=== PATIENT | male | born 1945 | race Caucasian/White ===

== ENCOUNTER → 2017-07-19 | Outpatient (CLI) | payer MEDICARE, OTHER ==
--- NOTE | 2017-07-30 02:41 | ONC ---
[place] [address] RADIATION ONCOLOGY NOTE Name: MARICRUZ WALLER Room: [facility]#: [id number] Admission: 07/19/17 Attend Phys: Rj Bonner MD Discharge: Date of : 47 Report #: [id number] THIS REPORT FOR: //name// CC: Rj Silva MD DATE OF SERVICE: 07/19/2017 [facility] REFERRING PHYSICIANS: Dr. Cole, Dr. Triana, his vascular surgeon; Dr. Tam, [facility] primary care [facility]; and Dr. Sadi Silva. 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 Radiation treatments were completed on 12/17/2015. PROCEDURE: Nasopharyngolaryngoscopy. FINDINGS: On nasopharyngolaryngoscopy, after the patient was given a small amount of 2% viscous orally and 2% viscous lidocaine to the left nostril, there were no visible lesions in the nasopharynx. There were no visible lesions in the posterior oropharynx. The true vocal cords were normally mobile bilaterally without any visible lesions. There was no evidence of head or neck cancer. Thank you for allowing me to participate in the care of this patient. <ELECTRONICALLY SIGNED> By: Rj Bonner MD 07/30/17 0241 1237 1616MD abigail Marcos
--- NOTE | 2017-07-30 02:48 | ONC ---
[address] [address] RADIATION ONCOLOGY NOTE Name: MARICRUZ WALLER Room: [facility]#: [id number] Admission: 07/19/17 Attend Phys: Rj Bonner MD Discharge: Date of : 47 Report #: [id number] THIS REPORT FOR: //name// CC: Rj Silva MD DATE OF SERVICE: 07/19/2017 REFERRING PHYSICIANS: Dr. Cole from psychiatry, Dr. Triana from vascular surgery, Dr. Tam, and Dr. Sadi Silva [facility] phone is [phone]. 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 The radiation treatments were completed on 12/17/2015. INTERVAL NOTE: Overall, the patient has been switching to eating salads and strawberries and has had some weight loss. He thinks he has a little bit of a decreased appetite. He denied having any painful swallowing. He denied having any dysphagia. He said he saw his vascular surgeon last month and that they said his aneurysm was stable. He said that he continues to follow up with his vascular surgeon. MEDICATIONS: Alprazolam, sertraline, Prazosin, ranitidine, ibuprofen, and aspirin. SOCIAL HISTORY: Cigarettes: The patient quit smoking in 2013, and he smoked about 1 pack per day for about 40 years. REVIEW OF SYSTEMS: RESPIRATORY: Breathing was stable. He was not short of breath. MUSCULOSKELETAL: He has good range of motion of his upper extremities. PHYSICAL EXAMINATION: VITAL SIGNS: The patient weighed 120.8 pounds on 07/19/2017, he was 133.2 pounds on 01/18/2017, he was 126 pounds on 09/07/2016, and he was 121.4 pounds on 01/13/2016. On 07/19/2017, pulse was 72, respirations 16, and oxygen saturation 97%. LYMPH NODES: He had no palpable cervical [place] [address] RADIATION ONCOLOGY NOTE Name: MARICRUZ WALLER Room: [facility]#: [id number] Admission: 07/19/17 Attend Phys: Rj Bonner MD Discharge: Date of : 47 Report #: [id number] HEAD, EYES, EARS, NOSE, AND THROAT: Mouth had no suspicious visible lesions or suspicious palpable lesions. On nasopharyngolaryngoscopy after the patient was given a small amount of 2% viscous lidocaine orally and 2% viscous lidocaine to the left nostril, there were no visible lesions in the nasopharynx or posterior oropharynx. The true vocal cords were normally mobile bilaterally without any visible lesions. HEART: Had a regular rate and rhythm without murmur. LUNGS: were clear to auscultation. LABORATORY DATA: From 07/07/2017, TSH was within normal limits at 0.810. ASSESSMENT AND PLAN: 1. History of true vocal cord cancer. There is no evidence of true vocal cord cancer at this time. The patient was asked to schedule a follow up appointment with me in about 6 weeks. 2. History of smoking-the patient had a screening chest CT without contrast ordered. The patient was asked to follow up with me afterwards in about 4-6 weeks. 3. History of aortic aneurysm- The patient follows up with his vascular surgeon, Dr. Triana, with regards to that issue. 4. reflux symptoms- the patient takes ranitidine as needed. Thank you for allowing me to participate in the care of this patient. <ELECTRONICALLY SIGNED> By: Rj Bonner MD 07/30/17 0248 1241 1633Ddiego Bonner MD /nt
== END | disposition home or self-care (01) ==
LOC: M.RTH 07-17 13:30
DX: Z85.21 Personal history of malignant neoplasm of larynx (principal); Z98.890 Other specified postprocedural states; Z87.891 Personal history of nicotine dependence; Z79.899 Other long term (current) drug therapy; Z79.82 Long term (current) use of aspirin

== ENCOUNTER → 2017-09-08 | Outpatient (CLI) | payer MEDICARE, OTHER ==
--- NOTE | 2017-09-17 13:03 | ONC ---
[address] [address] RADIATION ONCOLOGY NOTE Name: MARICRUZ WALLER Room: [facility]#: [id number] Admission: 09/08/17 Attend Phys: Rj Bonner MD Discharge: Date of : 47 Report #: [id number] THIS REPORT FOR: //name// CC: Rj Triana DATE OF SERVICE: 09/08/2017 RADIATION ONCOLOGY PROCEDURE NOTE REFERRING PHYSICIANS: Include Dr. Cole, Dr. Triana from Vascular Surgery and Dr. Jose and Sadi Silva MD. [facility] phone is [phone]. 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 Radiation treatments were completed on 12/17/2015. PROCEDURE: Nasopharyngolaryngoscopy. FINDINGS: On nasopharyngolaryngoscopy, after the patient was given a small amount of 2% viscous lidocaine orally and 2% viscous lidocaine to the left nostril via a cotton swab , there were no visible lesions in the nasopharynx. There were no visible lesions in the posterior oropharynx. The true vocal cords were normally mobile bilaterally without any visible lesions. There was no evidence of head and neck cancer. Thank you for allowing me to participate in the care of this patient. <ELECTRONICALLY SIGNED> By: Rj Bonner MD 09/17/17 1303 1752 2158MD abigail Marcos
--- NOTE | 2017-09-17 13:16 | ONC ---
[address] [address] RADIATION ONCOLOGY NOTE Name: MARICRUZ WALLER Room: [facility]#: [id number] Admission: 09/08/17 Attend Phys: Rj Bonner MD Discharge: Date of : 47 Report #: [id number] THIS REPORT FOR: //name// CC: Rj Silva DATE OF SERVICE: 09/08/2017 REFERRING PHYSICIANS: Include Dr. Cole; Dr. Triana; Dr. Tam, [place] primary care physician and Dr. Silva [facility] phone is [phone]. 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 The radiation treatments were completed on 12/17/2015. INTERVAL NOTE: The patient is eating soft foods such as soups. He recently had taken Augmentin for pneumonia. He did lose some weight with that episode. He says he sees his vascular surgeon about May of every year and that he saw him in 05/2017. MEDICATIONS: He has been on Augmentin for pneumonia and he is also taking alprazolam as needed, sertraline, prazosin, ranitidine, ibuprofen and aspirin. SOCIAL HISTORY: Cigarettes: The patient quit smoking in 2013. He smoked about one pack per day for about 40 years. REVIEW OF SYSTEMS: RESPIRATORY: Breathing was stable. He was not short of breath. MUSCULOSKELETAL: He had good range of motion of his upper extremities. PHYSICAL EXAMINATION: VITAL SIGNS: Weight was 117.2 pounds on 09/08/2017, 120.8 pounds on 07/19/2017. On 09/08/2017, blood pressure was 110/70, pulse 78, respirations 18 and oxygen saturation 97%. LYMPH NODES: The patient had no palpable cervical or supraclavicular lymphadenopathy. HEAD, EYES, EARS, NOSE AND THROAT: Mouth had no suspicious visible lesions or suspicious palpable lesions. On nasopharyngolaryngoscopy after the patient was given a small amount of 2% viscous lidocaine orally and 2% viscous lidocaine to the left nostril, there were no visible lesions in the nasopharynx [place] [address] RADIATION ONCOLOGY NOTE Name: CHRISTINMARICRUZ Antonia Room: [facility]#: [id number] Admission: 09/08/17 Attend Phys: Rj Bonner MD Discharge: Date of : 47 Report #: [id number] oropharynx. The true vocal cords were normally mobile bilaterally without any visible lesions. HEART: Had a regular rate and rhythm without murmur. LUNGS: were clear to auscultation. LABORATORY DATA: From 07/07/2017, TSH was 0.81 RADIOLOGIC DATA: screening CT of the lung on 09/01/2017 revealed development of scattered nodular opacities and areas of mucus plugging within both lungs, which could be pneumonia. There was a 0.87 cm left upper lobe nodule which was nonspecific, but could be a superimposed infection. Follow up low dose chest CT in 3 months was recommended and had mild emphysema and at least mild coronary artery calcifications. He is taking antibiotics for pneumonia. ASSESSMENT AND PLAN: 1. History of true vocal cord cancer- There is no evidence of true vocal cord cancer at this time. The patient had lab work ordered in about 3 months and the patient was asked to schedule a follow up appointment to see me afterwards. The lab work included a TSH, complete blood count and complete metabolic panel. 2. Resolving pneumonia-The patient had a low dose chest CT and a video swallow study ordered in 11/2017 as well as a complete blood count, complete metabolic panel in 10/2017 or 11/2017. The patient was asked to schedule a follow up appointment to see me afterwards. 3. History of aortic aneurysm- The patient follows up with his vascular surgeon, Dr. Triana with regards to that issue. Thank you for allowing me to participate in the care of this patient. <ELECTRONICALLY SIGNED> By: Rj Bonner MD 09/17/17 1316 1759 2206Rj Bonner MD /nt
== END ==
LOC: M.RTH 08-11 11:00
DX: Z08 Encounter for follow-up examination after completed treatment for malignant neoplasm (principal); F17.210 Nicotine dependence, cigarettes, uncomplicated; Z85.21 Personal history of malignant neoplasm of larynx

== ENCOUNTER → 2017-09-21 | Outpatient (CLI) | payer MEDICARE, OTHER | LOC: M.RAD 09:19 | DX: R13.12 Dysphagia, oropharyngeal phase (principal); J44.9 Chronic obstructive pulmonary disease, unspecified; Z85.21 Personal history of malignant neoplasm of larynx; Z87.891 Personal history of nicotine dependence ==

== ENCOUNTER → 2017-12-13 | Outpatient (CLI) | payer MEDICARE, OTHER ==
--- NOTE | 2017-12-25 22:15 | ONC ---
[address] [address] RADIATION ONCOLOGY NOTE Name: MARICRUZ WALLER Room: [facility]#: [id number] Admission: 12/13/17 Attend Phys: Rj Bonner MD Discharge: Date of : 47 Report #: [id number] THIS REPORT FOR: //name// CC: Rj Triana (Vascular surgery) DATE OF PROCEDURE: 12/13/2017 REFERRING PHYSICIANS: Dr. Cole, Dr. Jose, Dr. Sadi Silva, Dr. Triana from Vascular Surgery. [facility] phone is [phone]. 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 Radiation treatments were completed on 12/17/2015. PROCEDURE: Nasopharyngolaryngoscopy. FINDINGS: On nasopharyngolaryngoscopy, after the patient was given a small amount of 2% viscous lidocaine orally and 2% viscous lidocaine to the left nostril via a cotton swab, there were no visible lesions in the nasopharynx. There were no visible lesions in the posterior oropharynx. The true vocal cords were normally mobile bilaterally without any visible lesions. There is no evidence of head and neck cancer. Thank you for allowing me to participate in the care of this patient. <ELECTRONICALLY SIGNED> By: Rj Bonner MD 12/25/17 2215 1153 2106MD abigail Marcos
--- NOTE | 2017-12-25 22:22 | ONC ---
[address] [address] RADIATION ONCOLOGY NOTE Name: MARICRUZ WALLER Room: [facility]#: [id number] Admission: 12/13/17 Attend Phys: Rj Bonner MD Discharge: Date of : 47 Report #: [id number] THIS REPORT FOR: //name// CC: Rj Silva MD DATE OF SERVICE: 12/13/2017 REFERRING PHYSICIANS: Include Dr. Cole, Dr. Jose, Dr. Triana and Dr. Sadi Silva. [facility] phone is [phone]. 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 The radiation treatments were completed on 12/17/2015. INTERVAL NOTE: The patient is eating a regular diet. He says he sees his vascular surgeon about May of every year. His voice sounds like it has good quality. MEDICATIONS: Alprazolam, sertraline, prazosin, ranitidine, ibuprofen, aspirin and Marinol. SOCIAL HISTORY: Cigarettes: The patient quit smoking in 2013. He smoked about 1 pack per day for about 40 years. REVIEW OF SYSTEMS: RESPIRATORY: Breathing was stable. He was not short of breath. MUSCULOSKELETAL: Good range of motion of his upper extremities. PHYSICAL EXAMINATION: VITAL SIGNS: Weight was 120.2 pounds on 12/13/2017, 117.2 pounds on 09/08/2017. On 12/13/2017, blood pressure was 106/80, pulse 75, respirations 20, oxygen saturation 96%. LYMPH NODES: The patient had no palpable cervical or supraclavicular lymphadenopathy. HEAD, EYES, EARS, NOSE AND THROAT: Mouth had no suspicious visible lesions or suspicious palpable lesions. On nasopharyngolaryngoscopy after the patient was given a small amount of 2% viscous lidocaine orally and 2% viscous lidocaine to the left nostril, there were no visible lesions in the nasopharynx or posterior oropharynx. The true vocal cords were normally [place] [address] RADIATION ONCOLOGY NOTE Name: MARICRUZ WALLER Room: [facility]#: [id number] Admission: 12/13/17 Attend Phys: Rj Bonner MD Discharge: Date of : 47 Report #: [id number] visible lesions. HEART: Had a regular rate and rhythm without murmur. LUNGS: were clear to auscultation. LABORATORY DATA: From 12/08/2017, TSH was within normal limits at 1.14. Sodium 137, potassium 4.5, BUN 18, creatinine 1.08. AST 18, ALT 14. White blood count 4.7, hemoglobin 15, platelets 208,000. RADIOLOGIC DATA: Low dose chest CT- there was no significant change in the dominant left upper lobe nodular opacity, which was likely a scar. Continued annual low dose CT of the lung was recommended. 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 There were mild coronary artery calcifications. ASSESSMENT AND PLAN: 1. History of true vocal cord cancer- There is no evidence of true vocal cord cancer at this time. The patient had lab work for TSH, basic metabolic panel, complete blood count ordered in May 2018. He was asked to schedule a followup appointment to see me afterwards. 2. Resolving pneumonia/atypical pneumonia- The patient will be referred to infectious disease to assess the CT scan findings to see if they are in agreement with the radiology report about this possibly being atypical pneumonia and then treating the patient if appropriate. Again, the patient was asked to schedule a followup appointment to see me in 6 months. 3. History of aortic aneurysm- The patient follows up with his vascular surgeon, Dr. Triana with regards to that issue. Thank you for allowing me to participate in the care of this patient. <ELECTRONICALLY SIGNED> By: Rj Bonner MD 12/25/17 2222 1159 2116Rj Bonner MD /nt
== END ==
LOC: M.RTH 12-08 11:30
DX: J18.9 Pneumonia, unspecified organism (principal); Z86.79 Personal history of other diseases of the circulatory system; Z85.21 Personal history of malignant neoplasm of larynx

== ENCOUNTER → 2018-06-15 | Outpatient (CLI) | payer MEDICARE, OTHER ==
--- NOTE | ~2018-06-15 | ONC ---
[address] [address] RADIATION ONCOLOGY NOTE Name: CHRISTINMARICRUZ Antonia Room: [facility]#: [id number] Admission: 06/15/18 Attend Phys: Rj Bonner MD Discharge: Date of : 47 Report #: [id number] THIS REPORT FOR: //name// CC: Linda Bonner DATE OF SERVICE: 06/15/2018 REFERRING PHYSICIANS: Dr. Cole, Dr. Jose, Dr. Triana and Dr. Sadi Silva. [facility] phone is [phone]. 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 Radiation treatments were completed on 12/17/2015. INTERVAL NOTE: The patient is eating a regular diet. He sees his vascular surgeon about May of every year to check on his aortic aneurysm and his voice quality is good. MEDICATIONS: Alprazolam, sertraline, prazosin, ranitidine, ibuprofen as needed, aspirin and Marinol. SOCIAL HISTORY: The patient quit smoking in 2013, he smoked about 1 pack per day for about 40 years. REVIEW OF SYSTEMS: RESPIRATORY: Breathing was stable. He was not short of breath. MUSCULOSKELETAL: He has good range of motion of his upper extremities. PHYSICAL EXAMINATION: VITAL SIGNS: Weight 124.4 pounds on 06/15/2018, 120.2 pounds on 12/13/2017. On 06/15/2018, blood pressure 126/71, pulse 90, oxygen saturation 97%, respirations 20. LYMPH NODES: No palpable cervical or supraclavicular lymphadenopathy. HEAD, EYES, EARS, NOSE AND THROAT: Mouth had no suspicious visible lesions, suspicious palpable lesions. On nasopharyngolaryngoscopy, after the patient was given a small amount of 2% viscous lidocaine orally and 2% viscous lidocaine to left nostril, there were no visible lesions in the nasopharynx or posterior oropharynx. True vocal cords were normally mobile bilaterally without any visible lesions. HEART: Had a regular rate and rhythm without murmur. LUNGS: Clear to auscultation. LABORATORY DATA: From 05/21/2018, hemoglobin 14, platelets were 145,000, white blood cells 5.2. Sodium 137, potassium 4.5, BUN 18, creatinine 1.01 [place] [address] RADIATION ONCOLOGY NOTE Name: MARICRUZ WALLER Room: [facility]#: [id number] Admission: 06/15/18 Attend Phys: Rj Bonner MD Discharge: Date of : 47 Report #: [id number] 1.160. RADIOLOGIC DATA: He had a low dose chest CT without contrast on 12/08/2017 which revealed no significant changes in the left upper lobe nodular density, which is likely scarring and he had improvement in his some opacities that were seen previously. ASSESSMENT AND PLAN: 1. History of true vocal cord cancer. There is no evidence of true vocal cord cancer at this time. A requisition was written for complete blood count, basic metabolic panel and TSH in 12/2018. Follow up with me afterwards. 2. Screening for history of smoking. A screening chest CT was ordered without contrast in about 11/2018 and follow up with me afterwards. 3. History of aortic aneurysm. The patient will follow up with his vascular surgeon, Dr. Triana to manage that issue. 4. Appetite. The patient was given a refill for dronabinol and he is gaining weight while taking dronabinol also. Thank you for allowing me to participate in the care of this patient. By: 1653 [id number] Bonner MD /nt
--- NOTE | ~2018-06-15 | ONC ---
[place] [address] RADIATION ONCOLOGY NOTE Name: MARICRUZ WALLER Room: [facility]#: [id number] Admission: 06/15/18 Attend Phys: Rj Bonner MD Discharge: Date of : 47 Report #: [id number] THIS REPORT FOR: //name// CC: Linda Bonner DATE OF SERVICE: 06/15/2018 REFERRING PHYSICIANS: Dr. Cole, Dr. Triana, Dr. Jose, from Vascular Surgery. [facility] phone is [phone]. 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 Radiation treatments were completed on 12/17/2015. PROCEDURE: Nasopharyngolaryngoscopy. FINDINGS: On nasopharyngolaryngoscopy, after the patient was given a small amount of 2% viscous lidocaine orally and 2% viscous lidocaine to the left nostril via cotton swab, there were no visible lesions in the nasopharynx and no visible lesions in the posterior oropharynx. True vocal cords were normally mobile bilaterally without any visible lesions. There was no evidence of head and neck cancer. Thank you for allowing me to participate in the care of this patient. By: 1646 [id number] Bonner MD /nt
== END ==
LOC: M.RTH 11:30
DX: Z09 Encounter for follow-up examination after completed treatment for conditions other than malignant neoplasm (principal); Z92.3 Personal history of irradiation; Z79.899 Other long term (current) drug therapy; Z87.891 Personal history of nicotine dependence; Z86.018 Personal history of other benign neoplasm

== ENCOUNTER → 2019-01-11 | Outpatient (CLI) | payer MEDICARE, OTHER ==
--- NOTE | ~2019-01-11 | ONC ---
[address] [address] RADIATION ONCOLOGY NOTE Name: MARICRUZ WALLER Room: [facility]#: [id number] Admission: 01/11/19 Attend Phys: Rj Bonner MD Discharge: Date of : 47 Report #: [id number] THIS REPORT FOR: //name// CC: Linda Tam DO Rj Cole Kevin Jose MD Nabil DATE OF SERVICE: 01/11/2019 REFERRING PHYSICIANS: Dr. Tam at the [place] primary care physician, Dr. Cole from Psychiatry, Dr. Ferrer from Orthopedics, Dr. Jose public policy professor, Dr. oPlk Vascular Surgery. [facility] phone is [phone]. 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 Radiation treatments were completed on 12/17/2015. INTERVAL NOTE: The patient is eating a regular diet. He sees his vascular surgeon about May of every year to monitor his aortic aneurysm. His voice quality is good. MEDICATIONS: Include alprazolam, sertraline, prazosin, simvastatin, ranitidine as well as Megace and aspirin. SOCIAL HISTORY: The patient quit smoking in 2013, he smoked about 1 pack per day for about 40 years. REVIEW OF SYSTEMS: RESPIRATORY: Breathing was stable. He was not short of breath. MUSCULOSKELETAL: He has good range of motion of his upper extremities. PHYSICAL EXAMINATION: VITAL SIGNS: The patient weighed 121 pounds on 01/11/2019, 124.4 pounds on 06/15/2018 and on 01/11/2019, blood pressure 135/71, pulse 100, respirations 20, oxygen saturation 96%. LYMPH NODES: He had no palpable cervical or supraclavicular lymphadenopathy. HEAD, EYES, EARS, NOSE AND THROAT: Mouth had no suspicious visible lesions or suspicious palpable lesions. On nasopharyngolaryngoscopy, after the patient was given a small amount of 2% viscous lidocaine orally and 2% viscous lidocaine to left nostril, there were no visible lesions in the [place] [address] RADIATION ONCOLOGY NOTE Name: CHRISTINMARICRUZ Antonia Room: [facility]#: [id number] Admission: 01/11/19 Attend Phys: Rj Bonner MD Discharge: Date of : 47 Report #: [id number] oropharynx. True vocal cords were normally mobile bilaterally without any visible lesions. HEART: Had a regular rate and rhythm without murmur. LUNGS: Clear to auscultation. LABORATORY DATA: The patient had labs drawn today. Back on 05/21/2018, TSH was 1.16 and his sodium was 137, potassium 4.5, BUN 18, creatinine 1.01. He is still in the process of getting his screening chest CT done. He is trying to do that at [facility] in [place] and he went and had lab work done today at the [facility] and on 01/11/2019, his hemoglobin was 13.4. His platelet count was 248,000, white blood cell count 6.2. ASSESSMENT AND PLAN: 1. History of true vocal cord cancer. There is no evidence of true vocal cord cancer at this time. Requisition was written for a TSH level, complete blood count, complete metabolic panel in 08/2019, he was asked to schedule a followup appointment to see me afterwards. Screening for history of smoking. The patient had a CT of the lung on 12/08/2017, which did not reveal any suspicious findings. He is at this point trying to get a screening chest CT for this year at [facility]. Again, he was asked to follow up with me in 08/2019. 2. History of aortic aneurysm. The patient follows up with his vascular surgeon, Dr. Triana to manage that issue. Thank you for allowing me to participate in the care of this patient. By: 1400 [id number] Bonner MD /ron
--- NOTE | ~2019-01-11 | ONC ---
[address] [address] RADIATION ONCOLOGY NOTE Name: MARICRUZ WALLER Room: [facility]#: [id number] Admission: 01/11/19 Attend Phys: Rj Bonner MD Discharge: Date of : 47 Report #: [id number] THIS REPORT FOR: //name// CC: Linda Bonner DATE OF SERVICE: 01/11/2019 REFERRING PHYSICIANS: Dr. Tam primary care physician at the [place], Dr. Cole, Dr. Ferrer Orthopedics, Dr. Jose electrician aircraft, Dr. Polk from Vascular Surgery. [facility] phone is [phone]. 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 Radiation treatments were completed on 12/17/2015. PROCEDURE: Nasopharyngolaryngoscopy. FINDINGS: On nasopharyngolaryngoscopy, after the patient was given a small amount of 2% viscous lidocaine orally and 2% viscous lidocaine to left nostril via cotton swab, there were no visible lesions in the nasopharynx, no visible lesions in the posterior oropharynx. The true vocal cords are normally mobile bilaterally without any visible lesions. There is no evidence of head and neck cancer. Thank you for allowing me to participate in the care of this patient. By: 1354 1414Ddiego Bonner MD /ron
== END ==
LOC: M.RTH 04:58
DX: Z08 Encounter for follow-up examination after completed treatment for malignant neoplasm (principal); Z85.21 Personal history of malignant neoplasm of larynx; Z85.89 Personal history of malignant neoplasm of other organs and systems

== ENCOUNTER → 2019-09-13 | Outpatient (CLI) | payer MEDICARE, OTHER ==
--- NOTE | 2019-09-15 14:56 | ONC ---
[place] [address] RADIATION ONCOLOGY NOTE Name: MARICRUZ WALLER Room: [facility]#: [id number] Admission: 09/13/19 Attend Phys: Rj Bonner MD Discharge: Date of : 47 Report #: [id number] THIS REPORT FOR: //name// CC: Dr. Linda Bonner MD DATE OF SERVICE: 09/13/2019 RADIATION ONCOLOGY FOLLOWUP NOTE REFERRING PHYSICIANS: Include Dr. Cole, Dr. Tam, Dr. Ferrer, Dr. Polk from Vascular Surgery, Dr. Jose. DATE OF PROCEDURE: 09/13/2019 [facility] phone is [phone]. 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 Radiation treatments were completed on 12/17/2015. PROCEDURE: Nasopharyngolaryngoscopy. FINDINGS: On nasopharyngolaryngoscopy, after the patient was given a small amount of 2% viscous lidocaine orally and 2% viscous lidocaine to the left nostril via a cotton swab, there were no visible lesions in the nasopharynx. There were no visible lesions in the posterior oropharynx. The true vocal cords were normally mobile bilaterally without any visible lesions. There was no evidence of head and neck cancer. Thank you for allowing me to participate in the care of this patient. <ELECTRONICALLY SIGNED> By: Rj Bonner MD 09/15/19 1456 [id number] [id number] Bonner MD /nt
--- NOTE | 2019-09-15 15:01 | ONC ---
[address] [address] RADIATION ONCOLOGY NOTE Name: MARICRUZ WALLER Room: [facility]#: [id number] Admission: 09/13/19 Attend Phys: Rj Bonner MD Discharge: Date of : 47 Report #: [id number] THIS REPORT FOR: //name// CC: Dr. Linda Bonner DATE OF SERVICE: 09/13/2019 RADIATION ONCOLOGY FOLLOWUP NOTE REFERRING PHYSICIANS: Include Dr. Cole, Dr. Tam, Dr. Ferrer, Dr. Polk, Dr. Jose. [facility] phone is [phone]. 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 Radiation treatments were completed on 12/17/2015. INTERVAL NOTE: The patient is eating a regular diet. He sees his vascular surgeon around May of each year to monitor his aortic aneurysm. His voice quality is good. MEDICATIONS: Include ranitidine, sertraline, simvastatin, alprazolam, Megace, Marinol, multivitamin, hydrocodone, ibuprofen as needed for a fractured wrist. SOCIAL HISTORY: The patient quit smoking in 2013. He smoked about 1 pack per day for about 40 years. REVIEW OF SYSTEMS: RESPIRATORY: Breathing was stable. He was not short of breath. MUSCULOSKELETAL: He had good range of motion of his upper extremities. PHYSICAL EXAMINATION: VITAL SIGNS: The patient weighed 121.8 pounds on 09/13/2019 and 121 pounds on 01/12/2020. On 09/13/2019, blood pressure was 140/88, pulse 74, temperature 98.5 degrees Fahrenheit, oxygen saturation 96%, respirations 18. LYMPH NODES: The patient had no palpable cervical or supraclavicular lymphadenopathy. HEAD, EYES, EARS, NOSE AND THROAT: Mouth had no suspicious visible lesions or suspicious palpable lesions. On nasopharyngolaryngoscopy, after the patient was given a small amount of 2% viscous lidocaine orally and 2% viscous lidocaine to the left nostril, there were no visible lesions in the nasoph[place] [address] RADIATION ONCOLOGY NOTE Name: MARICRUZ WALLER Room: [facility]#: [id number] Admission: 09/13/19 Attend Phys: Rj Bonner MD Discharge: Date of : 47 Report #: [id number] oropharynx. The true vocal cords were normally mobile bilaterally without any visible lesions. HEART: Had a regular rate and rhythm without murmur. LUNGS: were clear to auscultation. LABORATORY DATA: From 08/27/2019, TSH 1.32, sodium 142, potassium 4.3, BUN 24, creatinine 1.16 and ALT 14. White blood cell count was 5.5, hemoglobin was 14.3, platelets were 240,000. RADIOLOGIC DATA: The patient had a low dose screening chest CT on 01/21/2019, which showed chronic changes in both lung vasquez. It did not reveal any acute cardiopulmonary process. ASSESSMENT AND PLAN: 1. History of true vocal cord cancer- There is no evidence of true vocal cord cancer at this time. A requisition was written for a complete blood count, basic metabolic panel and a TSH in 04/2020 and the patient was asked to schedule a followup appointment to see me afterwards. 2. Screening for history of smoking- A screening chest CT will be ordered around 12/2019 or 01/2020 and the patient was asked to schedule a followup appointment to see me afterwards. 3. History of aortic aneurysm- The patient follows up with his vascular surgeon to monitor his aneurysm. Thank you for allowing me to participate in the care of this patient. <ELECTRONICALLY SIGNED> By: Rj Bonner MD 09/15/19 1501 1330 [id number] Bonner MD /nt
== END ==
LOC: M.RTH 11:15
PROVIDERS: ATTEND Radiology Radiation Oncology
DX: Z08 Encounter for follow-up examination after completed treatment for malignant neoplasm (principal); Z85.21 Personal history of malignant neoplasm of larynx

== ENCOUNTER → 2020-05-15 | Outpatient (CLI) | payer OTHER ==
--- NOTE | ~2020-05-15 | ONC ---
[place] [address] RADIATION ONCOLOGY NOTE Name: MARICRUZ WALLER Room: [facility]#: [id number] Admission: 05/15/20 Attend Phys: Rj Bonner MD Discharge: Date of : 47 Report #: [id number] THIS REPORT FOR: cc: [facility] - Clinic physician unknown [facility] - Clinic physician unknown ~ Rj Bonner MD DATE OF SERVICE: 05/15/2020 PROCEDURE NOTE REFERRING PHYSICIANS: Include Kevin Polk MD, from Vascular Surgery; nurse practitioner, FLOYD Vega, at [facility] and Dr. Sheriff from Orthopedic Surgery [facility] phone is [phone]. 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 Radiation treatments were completed on 12/17/2015. PROCEDURE: Nasopharyngolaryngoscopy. FINDINGS: On nasopharyngolaryngoscopy, after the patient was given a small amount of 2% viscous lidocaine orally, 2% viscous lidocaine to left nostril via cotton swab, there were no visible lesions in the nasopharynx. There were no visible lesions in the posterior oropharynx. The true vocal cords were normally mobile bilaterally without any visible lesions. There was no evidence of head and neck cancer. Thank you for allowing me to participate in the care of this patient. By: 1347 1402DMD abigail La
--- NOTE | ~2020-05-15 | ONC ---
[address] [address] RADIATION ONCOLOGY NOTE Name: MARICRUZ WALLER Room: [facility]#: [id number] Admission: 05/15/20 Attend Phys: Rj Bonner MD Discharge: Date of : 47 Report #: [id number] THIS REPORT FOR: cc: [facility] - Clinic physician unknown [facility] - Clinic physician unknown ~ Rj Bonner MD DATE OF SERVICE: 05/15/2020 FOLLOWUP NOTE REFERRING PHYSICIANS: Dr. Polk, Dr. Sheriff and nurse practitioner, Lexi. [facility] phone is [phone]. 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 Radiation treatments were completed on 12/17/2015. INTERVAL NOTE: The patient is eating a regular diet. He has dentures. He is edentulous. He has been seeing an orthopedic surgeon with regards to a procedure on the left forearm after a fall. He follows up with that surgeon at [facility]. He also sees the vascular surgeon about May of each year to monitor his aortic aneurysm. MEDICATIONS: Include sertraline, simvastatin, ranitidine, ibuprofen, aspirin, hydrocodone as needed and Marinol. SOCIAL HISTORY: The patient quit smoking in 2013, smoked about 1 pack per day for about 40 years. REVIEW OF SYSTEMS: RESPIRATORY: Breathing was stable. He was not short of breath. MUSCULOSKELETAL: He had good range of motion of his upper extremities. PHYSICAL EXAMINATION: VITAL SIGNS: The patient weighed 121.8 pounds on 05/15/2020, 121 pounds on ____, pulse 80, respirations 18, temperature 98.6 degrees Fahrenheit, oxygen saturation 96%. LYMPH NODES: He had no palpable cervical or supraclavicular lymphadenopathy. HEAD, EYES, EARS, NOSE AND THROAT: Mouth had no suspicious visible lesions or suspicious palpable lesions. HEART: Had a regular rate and rhythm without murmur. LUNGS: Clear to auscultation. LABORATORY DATA: From 05/01/[address] [facility], white blood cell count was 5.51, hemoglobin 13.6, platelets were 139,000. Sodium was [address] [place] [address] RADIATION ONCOLOGY NOTE Name: MARICRUZ WALLER Room: [facility]#: [id number] Admission: 05/15/20 Attend Phys: Rj Bonner MD Discharge: Date of : 47 Report #: [id number], potassium was 5.4 with upper limits normal being 5.1, BUN 23, creatinine 1.0. RADIOLOGIC DATA: From his low-dose screening chest CT at [facility] 01/27/[address] examination of the chest. ASSESSMENT AND PLAN: 1. History of true vocal cord cancer. There is no evidence of true vocal cord cancer. A requisition was written for a TSH in 12/2020. The patient was asked to follow up with me afterwards. 2. Hyperkalemia -- the patient was referred to his primary care person, the nurse practitioner, Tanya Felder to follow up on the elevated potassium. He is not taking potassium supplements. 3. Screening for history of smoking. A screening chest CT will be ordered in 01/2021. The patient will be asked to follow up with me afterwards. 4. History of aortic aneurysm. The patient follows up with his vascular surgeon to monitor his aneurysm. 5. Elevated blood pressure. The patient was referred to his primary care staff, Tanya Elliott, to follow up on this. Total time spent was about 32 minutes. Thank you for allowing me to participate in the care of this patient. By: 1352 1409Rj Bonner MD /ron
== END ==
LOC: M.RTH 11:13
PROVIDERS: ATTEND Radiology Radiation Oncology
DX: Z85.21 Personal history of malignant neoplasm of larynx (principal); Z92.3 Personal history of irradiation; I10 Essential (primary) hypertension; E87.6 Hypokalemia; Z87.891 Personal history of nicotine dependence